=== PATIENT | female | born 1960 | race Caucasian/White ===

== ENCOUNTER → 2017-05-16 | Outpatient (CLI) | payer OTHER ==
[~2017-05-16] MED LIST: ATOR10TA82 PO; DEXL30CA5 PO; ESCI10TA17 PO; GLC500 PO; INSDGI SQ; LEVO75TA5 PO; LORA0.5T12 PO; NVLGI/PEN SQ; RANI150C4 PO; RIZA5TAB10 PO
--- NOTE | 2017-05-17 06:01 | PAP/PSG TECHNICIAN REPORT ---
[facility] Health Inspector Food Polysomnogram Report Study name: None Report date: 05/17/2017 Study date: 05/16/2017 Referring Physician: Cha Welch Name: MIRA REID Interpreting Physician: Gary Hawkins M.D. Date of : 1960 Health Inspector Food: Rajwinder Uriostegui RPS. Sex: Female Age: 56 Study Type: PSG Weight: 218 lbs Height: 56 years, Height 5' 5" BMI: 36.27 Medications: ATORVASTATIN 10 MG, DEXILANT 30 MG, LEXAPRO 10 MG, NOVOLOG FLEXPEN 100 UNIT/ML, LANTUS 100 UNIT/ML, LEVOTHYROXINE 75 MCG, LORAZEPAM 0.5 MG, METFORMIN 500 MG, RANITIDINE 150 MG, RIZATRIPTAN 5 MG Patient History 56 yr-old female here for a baseline/modified split study (CPAP to be introduced it AHI exceeds 15). She has a history of snoring and daytime sleepiness. The test was started on room air. ETCO2 testing is included in this study. Room 1 Parameters Monitored NPSG: E1-M2, E2-M1, Fp1-M2, Fp2-M1, F3-M2, F4-M2, F4-M1, C3-M2, C4-M2, C4-M1, O1-M2, O2-M2, O2-M1, T3-M2, T4-M1, P3-M2, P4-M1, CHIN1, CHIN2, HR, EKG, Legs, PFLOW, SNOR, FLOW, CFLOW, Tidal Volume, THOR, ABDO, SpO2, PLTH, CPRESS, ETCO2 Wave, ETCO2, pH Sleep Architecture Sleep Stages Time at Lights Off 9:38:04 PM STAGES Time (min.) TST (%) Time at Lights On 5:43:04 AM Wake 66.5 -- Total Recording Time (TRT) 485.00 min. N1 71.5 17 Total Sleep Period (TSP) 460.5 min. N2 268.5 64 Total Sleep Time (TST) 418.5min. N3 0.5 0 Awake Time 66.5 min. REM 78.0 19 Wake after Sleep Onset 42.0 min. Sleep Efficiency (SE) 86 % Sleep Onset Latency (CARSON) 24.5 min. Number of Stage 1 Shifts None Awakenings 15 Stage Changes 103 Number of REM periods 3 REM 78.0 19 REM Latency 185.5 min. NREM 340.5 81 Body Position Analysis Supine Right Left Side Prone Vertical Total Sleep Time (min.) 99.9 144.2 183.7 327.89 0.0 0.0 Total Sleep Time (%) 22% 34% 44% 78 0% N/A% Total Sleep Time REM (min.) 0.0 30.0 48.0 None 0.0 0.0 Total Sleep Time NREM (min.) 90.6 114.2 135.7 None 0.0 0.0 Intermittent Wake (min.) 9.3 28.5 28.7 None 0.0 0.0 Total Sleep Period (%) 21% None None None None None Arousals Myoclonus (PLM) * Events Count Index Events Count Index Spontaneous 32 5 Events Awake (PLMW) 103 92.9 Respiratory 35 5.0 Events Asleep w/ Arousal (PLMA) 60 8.6 PLM 60 9 Events Asleep w/o Arousal (PLMS) 392 56.2 Snoring 38 5 Total Asleep 452 64.8 Total 165 24 Total 555 69 Respiratory Analysis * CA OA MA CH H RERA Total Count 3 0 0 0 50 8 53 Index 0.4 0.0 0.0 0 7.2 1 8.7 Mean Duration 12.0 0.0 0.0 0.00 16.5 17.3 16.4 Longest Duration 13.5 0.0 0.0 0.00 0.0 23.2 37.4 Respiratory Event Summary Total Supine ~Supine Right Left Prone REM NREM Apneas Count 3 1 2 0 2 N/A 0 3 Index 0.4 1 0 0.0 0.7 N/A 0 1 Hypopneas (4% Desat) Count 50 12 38 17 21 N/A 6 44 Index 7.2 7.9 7 7.1 6.9 N/A 4.6 7.8 Apneas & All Hypopneas Count 53 13 40 17 23 N/A 6 47 Index 7.6 9 7 7 8 N/A 4.6 8.3 Respiratory Events (Cloth Tearer+All Hyp+RERA) Count 53 16 45 22 23 N/A 6 47 Index 8.7 11 8 9.2 7.5 N/A 4.6 9.7 Respiratory Related Arousal Count 35 16 21 13 8 N/A 1 34 Index 5.0 9 4 5 3 N/A 1 6 Snoring Analysis Supine Right Left Prone REM NREM Total Snore duration 25.4 min Snores count 469 501 380 N/A 179 1,171 1,350 Snore mean duration 1.1 Sec Snores index 311 208 124 N/A 137.7 206.3 193.5 TST with snoring (%) 6.1% SpO2 Analysis Total REM NREM Awake <50% 0.0 min. 0.0 min. 0.0 min. 0.0 min. 51 - 60% 0.0 min. 0.0 min. 0.0 min. 0.0 min. 61 - 70% 0.0 min. 0.0 min. 0.0 min. 0.0 min. 71 - 80% 0.0 min. 0.0 min. 0.0 min. 0.0 min. 81 - 90% 16.7 min. 7.9 min. 8.8 min. 0.0 min. 91 - 100% 459.8 min. 70.1 min. 331.7 min. 58.0 min. Average 93 92 93 94 Minimum SpO2 86 86 88 90 Desaturation Event Index 12.6 12.3 14.1 6.3 # Desat. Events below 89% 5 4 1 N/A Time(%) with Saturation below 89% 0.3 0.3 0.0 0.0 Time(min.) with Saturation below 89% 1.4 1.3 0.0 0.0 Heart Rate Analysis End Tidal CO2 Analysis Min (bpm) Max (bpm) Average (bpm) TSP (mins) % of TSP Awake 58 94 77 Above 55 mmHg 0.0 0.0 NREM 58 86 70 50-55 mmHg 0.0 0.0 REM 59 82 68 45-50 mmHg 0.0 0.0 Overall 58 86 69 40-45 mmHg 0.1 0.0 35-40 mmHg 168.8 40.3 30-35 mmHg 238.4 57.0 Average ETCO2 0.1 Supplemental O2 Values Minimum O2 level: None Value Start Time End Time Health Inspector Food Comments Ms. Reid slept in the right, left, and supine positions. No cardiac arrhythmias were noted. PLMs and arousals from leg movements were noted. No bruxism noted. Snoring was noted and scored as a 2-3 on a scale of 1 through 5. (0=no snoring, 5=snoring loud enough to be heard through a closed door or down the conklin way) She did not meet specific Split-Night criteria during the diagnostic portion of this study. She awoke to use the restroom two times during the night. Ms. Reid stated that she slept about the same as usual. The final report will be interpreted and signed by a sleep physician. The completed physician report will then be placed in the patient medical record. Therapy (cm H2O) 0 TIB (min.) 485.0 TST (min.) 418.5 Sleep Onset (min.) 24.5 REM Onset From Sleep (min.) 185.5 Sleep Efficiency % 86 Wakefulness (%) 14 Wakefulness (min.) 66.5 NREM 1 (%) 17 NREM 1 (min.) 71.5 NREM 2 (%) 64 NREM 2 (min.) 268.5 NREM 3 (%) 0 NREM 3 (min.) 0.5 REM (%) 19 REM (min.) 78.0 # Arousals 165 Arousal Index 24 # Snore 1,350 Snore Index 193.5 AHI 7.6 AHI Supine 9 AHI Non-Supine 7 NREM AHI 8.3 REM AHI 4.6 RDI 8.7 # Obstructive Apnea 0 # Central Apnea 3 # Mixed Apnea 0 # Hypopneas 50 RERAs 8 Total Respiratory Events 61 Time Below SpO2 89% (min.) 1.4 Mean NREM SpO2 (%) 93 Mean REM SpO2 (%) 92 Mean Sleep SpO2 (%) 93 Min NREM SpO2 (%) 88 Min REM SpO2 (%) 86 Position Supine (min.) 99.9 Position Non-supine (min.) 327.9 LM Index Sleep 64.8 LM Index NREM 72.8 LM Index REM 30.0 Mean Heart Rate (bpm) 69 Min Heart Rate (bpm) 58
--- NOTE | 2017-05-18 07:58 | POLYSOMNOGRAPH REPORT ---
CLINICAL DATA: A 56-year-old female with BMI of 36.3 referred by Cha Welch for a modified possible split night study if her AHI exceeded 15. She has a history of snoring and daytime sleepiness. SLEEP ARCHITECTURE: Total sleep period was 460.5 minutes. Total sleep time was 418.5 minutes divided between 340.5 minutes of non-REM sleep and 78 minutes of REM sleep. Sleep latency was 24.5 minutes. REM latency was 185.5 minutes. Sleep efficiency was 86%. Wake after sleep onset was 42 minutes. Sleep consisted of stage N1 17%, stage N2 64%, and REM 19%. AROUSAL DATA: 165 arousals were recorded for an index of 24 per hour. 60 were due to PLMs events. PLM DATA: Severe PLMD was noted. There was 452 limb movements during sleep noted for an index of 65 per hour with arousal index of 8.6 per hour. RESPIRATORY DATA: Mild sleep apnea was documented. The AHI was 7.6. The RDI was 8.7. There were 3 central apneic episodes. The longest apneic episode was 13.5 seconds. There were 15 hypopneic episodes with a mean duration of 16.5 seconds. There were 8 RERAs. The longest RERA was 23.2 seconds. OXIMETRY DATA: Transient hypoxemia was seen. Oxygen samuel was 86% during REM. Mean saturation was 93%. Time below 89% was 1.4 minutes. EKG: Heart rate ranged from 58-86 beats per minute. No arrhythmias were noted. [employer] SALES ASSOCIATE'S COMMENTS: The patient slept in the right, left, and supine position. Very frequent PLMs were noted with arousals for PLMs. Snoring was moderate, rated 2-3 on a scale of 1-5. The patient did not meet split night criteria. IMPRESSION: 1. Mild sleep apnea/hypopnea with an AHI of 7.6 and RDI of 8.7. 2. Severe periodic limb movement disorder with a periodic limb movement index of 65 with an arousal index of 8.6. RECOMMENDATIONS: The patient may benefit from a repeat sleep study with CPAP, use of auto CPAP, or use of an oral appliance. Evaluation for reversible causes of PLMD/RLS may be of benefit. Clinical correlation is needed. KYARA
== END | disposition home or self-care (01) ==
LOC: C.NEUR 21:00
PROVIDERS: ATTEND Nurse Practitioner Family
DX: R06.83 Snoring (principal); Z78.0 Asymptomatic menopausal state; G47.10 Hypersomnia, unspecified; E11.9 Type 2 diabetes mellitus without complications; F51.04 Psychophysiologic insomnia